=== PATIENT | male | born 1960 | race Caucasian/White ===

== ENCOUNTER 2016-09-17 15:30 | Emergency (ER) | payer SELFPAY ==
[~2016-09-17 15:30] MED LIST: ATENOLOL25 MG; ATENOLOL50 MG; PROTONIX40 MG PO; ZITHROMAX250MG Z-PAK PO
== END 2016-09-17 16:27 | disposition left against medical advice (07) ==
LOC: EDMED 15:30
DX: L60.8 Other nail disorders (principal); Z53.21 Procedure and treatment not carried out due to patient leaving prior to being seen by health care provider